=== PATIENT | male | born 1980 | race Caucasian/White ===

== ENCOUNTER 2016-04-30 12:33 | Emergency (ER) | payer OTHER ==
[~2016-04-30] VITALS: Ht 175.3 cm; Wt 74.5 kg
[2016-04-30 16:01] VITALS: BP 112/84
[2016-04-30] MEDS ORDERED: LORazepam 1 MG TABLET PO ONE (16:30)
== END 2016-04-30 16:51 | disposition home or self-care (01) ==
LOC: EMS 12:38
DX: F41.9 Anxiety disorder, unspecified (principal)
CPT/HCPCS: 99283